=== PATIENT | female | born 1950 | race Caucasian/White ===

== ENCOUNTER 2024-05-30 01:41 | Day surgery (SDC) | payer MEDICARE, SELFPAY ==
[2024-05-29 13:28] VITALS: BMI 43.1
--- OUTSIDE RECORDS SUMMARY | 2024-05-30 01:44 | XMS_ITS | Patient Health Summary ---
Author Organization [facility] [email or web address] Address [address] [place] [address] Care Team Providers Care Cbx Operator Name Role Phone Unavailable Primary Care Provider Unavailabl e Note from [facility],non-owned Affiliates and Associated Physician Practices is amultiple site organization consisting of ambulatory clinics and hospital sitesin [place], [place] and [place]. This disclosure is being madepursuant to the Care Everywhere program and may not contain all information available regarding this patient. Last updated 18.[facility] [email or web address] Allergies * Adhesive Sensitivity * Naproxen Sodium Medications * Be aware that medications may not be up to date on this document. Alwaysverify current medications with the patient. * cyclobenzaprine (FLEXERIL) 10 MG tablet nightly as needed. * nabumetone (RELAFEN) 500 MG tablet 2 times daily. 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 05/05/2010 Degeneration of lumbar or lumbosacral interverte bral disc 05/05/2010 Social History Tobacco Use Types Packs/Day Years Used Date Smoking Tobacco: Never Smokeless Tobacco: Never Alcohol Use Standard Drinks/Week Comments No 0 (1 standard drink = 0.6 oz pur e alcohol) Sex and Gender Information Value Date Recorded Sex Assigned at Not on file Gender Identity Not on file Sexual Orientation Not on file Last Filed Vital Signs Vital Sign Reading Time Taken Comments Blood Pressure - - Pulse - - Temperature - - Respiratory Rate - - Oxygen Saturation - - Inhaled Oxygen Concentration - - Weight 109.8 kg (242 lb) 05/05/2010 10:37 AM LEADERSHIP DEVELOPMENT MANAGER Height 160 cm (5' 3 ) 05/05/2010 10:37 AM LEADERSHIP DEVELOPMENT MANAGER Body Mass Index 42.87 05/05/2010 10:37 AM LEADERSHIP DEVELOPMENT MANAGER Procedures * DERMATOPATHOLOGY(Performed 02/20/2015) * CULTURE MRSA(Performed 03/19/2014) Results * PATHOLOGY TISSUE FOR DERMATOLOGY (02/20/2015 12:00 AM CDT) Result CASE: PATIENT: DICK MERRILL PATHOLOGIC DIAGNOSIS: Right dorsal hand: SOLAR LENTIGO CLINICAL DATA: Lentigo vs LM. GROSS DESCRIPTION: Received is one formalin filled container labeled with the patients name and designated right dorsal hand. The specimen consists of a shave measuring [id number]. Jar 0. MICROSCOPIC DESCRIPTION: There is orthokeratosis. There is a slight increase in epidermal thickness with lentiginous buds of hyperpigmented keratinocytes. The number of melanocytes is only mildly increased. In the dermis, there is basophilic degeneration of elastic fibers. Electronically signed out by Lubna Rdz M.D. 02/24/2015 4:18:05PM [facility] Comment: Performed at: Dermatopathology Laboratory [facility] - Department of Dermatology [address] [place] [address] [place] [address] Phone number: [phone] FAX: [phone] 02/20/2015 02/23/2015 Becky Myles MD LAB - PATHOLOGY/CYT OLOGY ORDERABLES Performing Organization Address City/State/[facility] Co de Phone Number [facility] [address] [place] [address]. [facility] Floor Lab B [address] [phone] * CULTURE MRSA (03/19/2014 2:00 PM LEADERSHIP DEVELOPMENT MANAGER) Culture MRSA Screen No Growth of Methicillin Resistant Staphylococcus aureus. [facility] Nasopharyngeal 03/19/2014 2: 00 PM LEADERSHIP DEVELOPMENT MANAGER 03/19/2014 9:51 PM LEADERSHIP DEVELOPMENT MANAGER Narrative [facility] - 03/21/2014 7:51 AM LEADERSHIP DEVELOPMENT MANAGER Aura#[id number] Se Loc/Rm/Bed: OP SGPREOP// Historical Provider LAB - MICROBIOLOG Y ORDERABLES [address] [phone]
--- OUTSIDE RECORDS SUMMARY | 2024-05-30 01:44 | XMS_ITS | Referral Summary ---
Author Organization [facility] [employer] Address [address] [place] [address] Care Team Providers Care Dress Operator Name Role Phone Unavailable Primary Care Provider Unavailabl e Source Comments [facility] [employer],non-owned Affiliates and Associated Physician Practices is amultiple site organization consisting of ambulatory clinics and hospital sitesin [place], [place] and [place]. This disclosure is being madepursuant to the Care Everywhere program and may not contain all information available regarding this patient. Last updated 18.[facility] [employer] Allergies Active Allergy Reactions Criticality Noted Date Comments Adhesive Sensitivity 05/05/2010 Naproxen Sodium 05/05/2010 Medications * Be aware that medications may not be up to date on this document. Alwaysverify current medications with the patient. Medication Sig Dispensed Refills Start Date End Date Status cyclobenzaprine (FLEXERIL) 10 MG tablet nightly as needed. Active nabumetone (RELAFEN) 500 MG tablet 2 times daily. Active diclofenac sodium EC (VOLTAREN) 75 MG tablet Take 1 Tab by mouth daily with food 180 Tab 4 06/02/2015 Active Active Problems Problem Noted Date Diagnosed Date [...] 109.8 kg (242 lb) 05/05/2010 10:37 AM MEMBERSHIP ADMINISTRATOR Height 160 cm (5' 3 ) 05/05/2010 10:37 AM MEMBERSHIP ADMINISTRATOR Body Mass Index 42.87 05/05/2010 10:37 AM MEMBERSHIP ADMINISTRATOR Plan of Treatment Not on file
--- OUTSIDE RECORDS SUMMARY | 2024-05-30 01:44 | XMS_ITS | Continuity of Care Document ---
Author Organization [facility] Address [address] [place] [address] Phone Care Team Providers Care Dietary Services Manager Name Role Phone Earnest Garcia MD Unavailable Unavailable Allergies, Adverse Reactions, Alerts Substance Reaction Status Criticality TAPE, OCCLUSIVE ADHESIVE Active No Information NSAIDS (Non-Steroidal Anti-Inflammatory Drug) Active No Information Medications Medication Instructions Dosage Effective Dates (start - stop) Status Comments Voltaren 1 % topical gel - Activ e Procedures Procedure Date OFFICE CONSULTATION Advance Directives Directive Yes / No Effective Date File Name Resuscitation Not Answered N/A N/A Life Support Not Answered N/A N/A Intubation Not Answered N/A N/A Antibiotics Not Answered N/A N/A IV Fluid Support Not Answered N/A N/A Tube Feed Not Answered N/A N/A Other Directive N/A N/A WARNING:The information contained in this section is historical and is provided for information only and does not constitute a legal document or any assurance that the information is still accurate. Please verify the information with the cardoso of the legal document before using it for clinical purposes. Encounters Encounter Description Practice Location Reason(s) For Visit Diagnoses Date Provider Providers Copied on Encounter OFFICE CONSULTATION [facility], [address], [place], [address], [place] tel:[phone] Achilles tendonitis [address] Jose Tinoco. [address], [place], [place], [id number] . tel: [phone] Family History Family Member Type Diagnosis Age At Onset No Information Payers Payer name Insurance type Covered republican ID Authoriza tion(s) No Information Social History Type Description Quantity Date Captured Comments Alcohol Use Details Unknown Caffeine Use Details Unknown Tobacco Use Status No Information Smoking Status Never smoker Non-Smoking Tobacco Use Details : No Details Available : No Details Available Sex Female Vital Signs Date / Time: Height Weight BMI Pulse Rate Blood Pressure Temperature Respiratory Rate Body Surface Area Head Circumference Head Circ. Percentile Wt./Minh. Percentile BMI percentile Pulse Ox Inhaled Ox 9:49 AM 63.00 in 245.00 lbs 43.4 0 kg/m eter (2) 146/50 mm[Hg] Chief Complaint And Reason For Visit No Information Reason For Referral Reason For Referral No Information Plan Of Treatment Date Type Action Status Referral Ordered: RADEX CALCANEUS MINIMUM 2 VIEWS RT ordered History Of Present Illness Encounter Date Complaint History Of Prese nt Illness No Information Functional Status Date Functional Assessmen t No Information Instructions Date Instruction Additional Infor mation No Information Assessments Type Assessment Date No Information Patient Care Teams Name Effective Dates (start - stop) Status Members No Information
--- OUTSIDE RECORDS SUMMARY | 2024-05-30 01:44 | XMS_ITS | Clinical Summary ---
Author Organization [facility] Address [address] [place] [address] Care Team Providers Care Valve And Regulator Repairer Name Role Phone Unavailable Primary Care Provider Unavailabl e Source Comments [facility],non-owned Affiliates and Associated Physician Practices is amultiple site organization consisting of ambulatory clinics and hospital sitesin [place], [place], [place] and [place]. This disclosure is being madepursuant to the Care Everywhere program and may not contain all information available regarding this patient. Last updated 18.[facility] Allergies Active Allergy Reactions Criticality Noted Date [...] 109.8 kg (242 lb) 05/05/2010 10:37 AM WORKERS' COMPENSATION HEARINGS OFFICER Height 160 cm (5' 3 ) 05/05/2010 10:37 AM WORKERS' COMPENSATION HEARINGS OFFICER Body Mass Index 42.87 05/05/2010 10:37 AM WORKERS' COMPENSATION HEARINGS OFFICER Plan of Treatment Health Maintenance Due Date Last Done Comments BONE DENSITY TESTING 1950 COLOGUARD (AGES 45-75) - COL ON CA SCREENING 1951 COLON MONITORING 1951 COLONOSCOPY - COLON CA SCREENING 1950 CT COLONOGRAPHY - COLON CA SCREENING 1950 Colorectal Cancer Screening 1950 FIT - COLON CA SCREENING 1950 FLEX SIG - COLON CA SCREENING 1950 LIPID TESTING 1950 MAMMOGRAM 1950 HEPATITIS C SCREENING 04/03/1969 DTAP/TDAP/TD VACCINES (1 - Tdap) 1970 PNEUMOCOCCAL VACCINE 50+ (1 of 1 - PCV) 2001 ZOSTER VACCINE (1 of 2) 2001 Respiratory Syncytial Virus (RSV) Vaccine Pt: or over 60 yrs (1 - Risk 60-74 years 1-dose series) 2011 COVID-19 VACCINE ( - 2023-2 5 season) 2023 INFLUENZA VACCINE (#1) 2023 DEPRESSION SCREENING 05/01/2024 HEPATITIS B VACCINE Aged Out No longe r eligible based on patient's age to complete this topic HIB VACCINE Aged Out No longer eligi ble based on patient's age to complete this topic HPV VACCINE Aged Out No longer eligi ble based on patient's age to complete this topic MENINGOCOCCAL (Group B) VACCINE Aged Out No longer eligible based on patient's age to complete this topic MENINGOCOCCAL VACCINE Aged Out No mo syl eligible based on patient's age to complete this topic
[2024-05-30 08:15] VITALS: BP 142/77; PULSE 81; RESP 18; TEMP 36.1; O2SAT 96
[2024-05-30] MEDS: LACTATED RINGERS 1,000 ML 150 ML IV CONT (08:22)
--- NOTE | 2024-05-30 08:32 | P.PNAN_ITS ---
Anes - Initial Pre Proc Eval Procedure: Operation Date: 05/30/24 09:30 Proposed Procedures p Esophagogastroduodenoscopy - Jose Daugherty MD Date/Time: 05/30/24 08:32 Surgeon: Jose Daugherty MD Pre Op Diagnosis: cough Patient Data Age: 74 Gender: F Height: 1.6 m Weight: 107 kg Last Vital Signs Temp 36.1 C L 05/30/24 08:15 Pulse 81 05/30/24 08:15 Resp 18 05/30/24 08:15 BP 142/77 H 05/30/24 08:15 Pulse Ox 96 05/30/24 08:15 O2 Del Method Room Air 05/30/24 08:15 Allergies Allergy/AdvReac Type Severity Reaction Status Date / Time naproxen Allergy Intermediate ITCHING, Verified 05/30/24 08:12 HIVES Home Medications ?Medication ?Instructions ?Recorded ?Confirmed ?Type albuterol sulfate 90 mcg/actuation 2 puff inhalation Q4H PRN 05/29/24 05/30/24 History aerosol inhaler shortness of breath or wheezing fluticasone 250 mcg-salmeterol 50 1 inh inhalation DAILY 05/29/24 05/30/24 History mcg/dose blistr powdr for inhalation ipratropium bromide 0.02 % 0.5 mg inhalation Q8H PRN 05/29/24 05/30/24 History solution for inhalation shortness of breath or wheezing montelukast 10 mg tablet 10 mg PO QPM 05/29/24 05/30/24 History omeprazole 40 mg capsule,delayed 40 mg PO DAILY 05/29/24 05/30/24 History release Patient hx anesthesia problems: none Family hx anesthesia problems: none Results Review: All pre-operative results and documents have been reviewed as part of the pre- operative evaluation. [facility] Past Medical History Medical History (Updated 05/29/24 @ 15:01 by Luis Hackett DO) Endometriosis Social History Social History Smoking status: Never smoker Alcohol intake: never Substance use: never Living arrangements: with family Spiritual care concerns: No Anes - Eval Final PreProcedure Day of Procedure 05/30/24 08:32 Patient weight: morbidly obese Heart: regular rate and rhythm Lungs: clear to auscultation Airway: Mallampati scale class II Neurological: alert and oriented Last oral intake: >/= 8 hours ASA classification: III Emergent: no Anesthetic plan: proceed Anesthesia type and monitoring: general GIVS and standard monitoring Results Review: All pre-operative results and documents have been reviewed as part of the pre- operative evaluation. Informed Consent: The patient's anesthetic plan and its attendant risks and benefits were discussed with the patient/family/POA. Questions were solicited and answers provided to the satisfaction of the patient/family/POA.
--- NOTE | 2024-05-30 09:02 | P.HP_ITS ---
H&P: HPI History of Present Illness Date/Time: 05/30/24 09:02 Chief Complaint: GERD Narrative: this patient suffers from GERD for many years. She states she is well controlled with omeprazole 20 mg which she takes before bedtime, approximately 4 hours after her last meal. She denies dysphagia, unintentional weight loss, nausea vomiting but she has been complaining of a persistent dry cough since last [place]. She is referred for EGD. Review of Systems Review of Systems: All systems reviewed & are unremarkable except as noted in HPI and below [facility] Past Medical History Medical History (Updated 05/30/24 @ 09:03 by Jose Daugherty MD) Endometriosis Social History Social History Smoking status: Never smoker Alcohol intake: never Substance use: never Living arrangements: with family Spiritual care concerns: No Meds Home Medications and Allergies Home Medications ?Medication ?Instructions ?Recorded ?Confirmed ?Type albuterol sulfate 90 mcg/actuation 2 puff inhalation Q4H PRN 05/29/24 05/30/24 History aerosol inhaler shortness of breath or wheezing fluticasone 250 mcg-salmeterol 50 1 inh inhalation DAILY 05/29/24 05/30/24 History mcg/dose blistr powdr for inhalation ipratropium bromide 0.02 % 0.5 mg inhalation Q8H PRN 05/29/24 05/30/24 History solution for inhalation shortness of breath or wheezing montelukast 10 mg tablet 10 mg PO QPM 05/29/24 05/30/24 History omeprazole 40 mg capsule,delayed 40 mg PO DAILY 05/29/24 05/30/24 History release Allergies Allergy/AdvReac Type Severity Reaction Status Date / Time naproxen Allergy Intermediate ITCHING, Verified 05/30/24 08:12 HIVES Vital Signs Vital Signs - 24 hr 05/30/24 08:15 Temperature 96.9 F L Pulse Rate 81 Respiratory Rate 18 Blood Pressure 142/77 H Pulse Oximetry 96 Oxygen Delivery Room Air Exam Const: General: cooperative and healthy appearing Resp: Effort & Inspection: normal respiratory effort and able to speak in complete sentences Auscultation: clear to auscultation bilaterally Cardio: Rate: regular rate Rhythm: regular rhythm GI: Inspection: normal to inspection GI Palp: No No hepatosplenomegaly present Auscultation: normal bowel sounds Rectal Exam: deferred Skin: General skin exam: normal color Psych: Appearance: grossly normal Mental Status: mental status grossly normal Assessment and Plan Assessment and plan (1) GERD (gastroesophageal reflux disease): Code(s): K21.9 - Gastro-esophageal reflux disease without esophagitis Status: Acute Assessment and Plan: The patient is deemed a good candidate for the procedure. Consent signed. Will proceed.
[2024-05-30] MEDS: BENZOCAINE (*SP) 60 ML SPRAY CAN (HURRICAINE) 1 SPRAY MUCOUS MEM (09:13)
[2024-05-30 09:24] VITALS: BP 127/50; PULSE 90; RESP 26; O2SAT 97
[2024-05-30 09:34] VITALS: BP 160/78; PULSE 98; RESP 20; O2SAT 96
[2024-05-30 09:44] VITALS: BP 160/66; PULSE 83; RESP 20; O2SAT 97
--- NOTE | 2024-05-30 10:17 | SUR.PHASEII ---
1000 Pt up to bathroom with assistance still feeling dizzy. Family at bedside. Continue to monitor.
== END 2024-05-30 10:34 | disposition home or self-care (01) ==
PROVIDERS: PCP Family Medicine; Referring Provider Nurse Practitioner Family; Visit Provider Internal Medicine Gastroenterology
PROC: 0DJ08ZZ Inspection of Upper Intestinal Tract, Via Natural or Artificial Opening Endoscopic (ICD-10-PCS; CPT 43239; principal; 2024-05-30 09:30)
DX: K29.30 Chronic superficial gastritis without bleeding (principal); K21.9 Gastro-esophageal reflux disease without esophagitis; N80.9 Endometriosis, unspecified; E66.01 Morbid (severe) obesity due to excess calories; Z68.41 Body mass index [BMI] 40.0-44.9, adult; Z79.51 Long term (current) use of inhaled steroids
CPT/HCPCS: 43239; 88305; J1596; J2003; J2704; J7120